=== PATIENT | male | born 1935 | race Caucasian/White ===

== ENCOUNTER 2019-03-30 13:01 | Inpatient (IN) | payer MEDICARE ==
[~2019-03-30] VITALS: Ht 185.4 cm; Wt 89.5 kg
[2019-04-07 07:30] VITALS: BP 124/81
== END 2019-04-07 08:44 | DRG 854 ==
LOC: 3NW 17:15
PROVIDERS: ADMIT Hospitalist; ATTEND Hospitalist
PROC: 0FT44ZZ Resection of Gallbladder, Percutaneous Endoscopic Approach (ICD-10-PCS; principal; 2019-03-31)
DX: A41.9 Sepsis, unspecified organism (principal); K81.0 Acute cholecystitis; D62 Acute posthemorrhagic anemia; E87.1 Hypo-osmolality and hyponatremia; C18.6 Malignant neoplasm of descending colon; E46 Unspecified protein-calorie malnutrition; Z68.26 Body mass index [BMI] 26.0-26.9, adult; F03.90 Unspecified dementia, unspecified severity, without behavioral disturbance, psychotic disturbance, mood disturbance, and anxiety; F31.9 Bipolar disorder, unspecified; G57.93 Unspecified mononeuropathy of bilateral lower limbs; G89.29 Other chronic pain; M54.9 Dorsalgia, unspecified; K21.9 Gastro-esophageal reflux disease without esophagitis; K29.70 Gastritis, unspecified, without bleeding; K29.90 Gastroduodenitis, unspecified, without bleeding; K59.09 Other constipation; K82.8 Other specified diseases of gallbladder; M81.0 Age-related osteoporosis without current pathological fracture; N18.3 Chronic kidney disease, stage 3 (moderate); N40.0 Benign prostatic hyperplasia without lower urinary tract symptoms; Z66 Do not resuscitate; Z85.038 Personal history of other malignant neoplasm of large intestine; Z85.46 Personal history of malignant neoplasm of prostate; Z86.73 Personal history of transient ischemic attack (TIA), and cerebral infarction without residual deficits; Z87.891 Personal history of nicotine dependence; Z99.3 Dependence on wheelchair; Z99.81 Dependence on supplemental oxygen; J44.9 Chronic obstructive pulmonary disease, unspecified
CPT/HCPCS: 36415; 71045; 71250; 80048; 80053; 81001; 82378; 83605; 83735; 83880; 84100; 85025; 85610; 85730; 87040; 87324; 88304; 93005; 93306; C1729; G0378; J0690; J1100; J2405; J2543; J2704; J2710; J3010; J0330; J2370